=== PATIENT | male | born 1970 | race Two or more races ===

== ENCOUNTER 2019-09-09 12:36 | Emergency (ER) | payer OTHER ==
[~2019-09-09] VITALS: Ht 157.5 cm; Wt 67.2 kg
[2019-09-09] MEDS ORDERED: KETOROLAC 30 MG/1 ML IM ONE (13:00)
--- NOTE | 2019-09-09 13:00 | NUR ---
PT HERE WITH C/O LEFT FLANK PAIN THAT RADIATES TO THE FRONT. PT STATES HX KIDNEY STONE AND STATES THIS FEELS SIMILAR. PT AAO X 4, NAD, ROOM AIR, DRESSED IN GOWN AND ATTACHED TO MONITOR. PA AT BEDSIDE. PT EDUCATED ON NEED FOR URINE SAMPLE.
[2019-09-09] MEDS ORDERED: KETOROLAC 30 MG/1 ML ONE (13:14)
--- NOTE | 2019-09-09 13:16 | NUR ---
PT MEDICATED PER ORDERS.
[2019-09-09 13:17] LABS: BASOPHILS # (AUTO) 0.09 x10^3/uL (0-0.1); BASOPHILS % (AUTO) 1 % (0-1); EOSINOPHILS # (AUTO) 0.26 x10^3/uL (0-0.4); EOSINOPHILS % (AUTO) 3 % (1-7); LYMPHOCYTES # (AUTO) 2.12 x10^3/uL (1-3.4); LYMPHOCYTES % (AUTO) 23 % (22-44); MD NO; MEAN CORPUSCULAR HEMOGLOBIN 25.1 pg (27.5-34.5); MEAN CORPUSCULAR HGB CONC 31.8 g/dL (33.2-36.2); MEAN CORPUSCULAR VOLUME 79.1 fL (81-97); MEAN PLATELET VOLUME 7.8 fL (7.4-10.4); MONOCYTES # (AUTO) 0.69 x10^3/uL (0.2-0.8); MONOCYTES % (AUTO) 7 % (2-9); NEUTROPHILS # (AUTO) 6.23 x10^3/uL (1.8-6.8); NEUTROPHILS % (AUTO) 66 % (42-75); PLATELET COUNT 264 x10^3/uL (130-400); RED CELL DISTRIBUTION WIDTH 14.8 % (9.4-14.8)
[2019-09-09 13:27] LABS: ALBUMIN 3.9 g/dL (3.4-5.0); ANION GAP 6 mmol/L (5-15); CALCIUM 9.4 mg/dL (8.5-10.1); CHLORIDE 104 mmol/L (98-107); CREATININE 1.04 mg/dL (0.7-1.3)
--- NOTE | 2019-09-09 13:37 | NUR ---
UA COLLECTED AND SENT TO LAB.
--- NOTE | 2019-09-09 13:44 | NUR ---
PT TO CT.
--- NOTE | 2019-09-09 13:49 | NUR ---
PT BACK FROM CT.
[2019-09-09 14:00] LABS: MICROSCOPIC AUTO
[2019-09-09 14:02] LABS: CULTURE INDICATED? NO
--- NOTE | 2019-09-09 14:06 | NUR ---
ALL RESULTS BACK AT THIS TIME, CHART UP FOR RECHECK.
--- NOTE | 2019-09-09 14:10 | NUR ---
BREAK NOTE FOR RN: PT LAYING BACK IN BED, RESPIRATIONS EVEN AND UNLABORED ON RA. SIDE RAIL UP, CALL LIGHT IN REACH, PT CHART UP FOR RECHECK.
[2019-09-09 14:20] VITALS: BP 137/98
--- NOTE | 2019-09-09 14:51 | NUR ---
Patient/Caregiver given discharge instructions and they have confirmed that they understand the instructions. Patient ambulatory with steady gait.
--- NOTE | 2019-09-09 14:52 | NUR ---
DR. DEJESUS STOPPED PT IN [facility], DR. MCKEON FROM UROLOGY IS IN HOUSE AND WILL SEE PT PRIOR TO D/C.
== END 2019-09-09 15:34 | disposition home or self-care (01) ==
LOC: ED 15:00
DX: N13.2 Hydronephrosis with renal and ureteral calculous obstruction (principal); N20.0 Calculus of kidney
CPT/HCPCS: 36415; 74176; 80048; 81001; 82040; 85025; 96372; 99284; J1885